=== PATIENT | male | born 1935 | race Two or more races ===

== ENCOUNTER 2017-09-30 20:53 | Inpatient (IN) | payer OTHER ==
[~2017-09-30] VITALS: Ht 182.9 cm; Wt 101.7 kg
[~2017-09-30 20:53] MED LIST: ALLO300T2 PO; APIX2.5T PO; ASPI-1197 PO; CLOP75TA32 PO; DILT240C94 PO; DOCU-116 PO; DONE5TAB33 PO; DULA1.5P SQ; ESCI10TA54 PO; FURO40TA5 PO; INSU300I SQ; METO-391 PO; OMEP40CA37 PO; POTA-79 PO; PREG200C PO; TRAZ-144 PO; VALA500T38 PO; ZOLP6.2526 PO
[2017-09-30] MEDS ORDERED: SODIUM CHLORIDE 0.9% 1000ML 1,000 ML IV ONE (21:21)
[2017-09-30] MEDS ORDERED: ATROPINE SULFATE 0.1 MG/ML 10 ML SYG IVP ONE (21:21)
[2017-09-30] MEDS ORDERED: DOPAMINE HCL 400 MG/D5%-WATER 250 ML IV ONE (21:26)
[2017-09-30 21:34] LABS: BASOPHILS % (AUTO) 0.5 % (0.0-5.0); EOSINOPHILS % (AUTO) 0.3 % (0.0-8.0); HEMATOCRIT 37.4 % (42-54); LYMPHOCYTES % (AUTO) 11.1 % (21.0-51.0); MEAN CORPUSCULAR HEMOGLOBIN 24.3 pg (27.0-33.0); MONOCYTES % (AUTO) 14.7 % (3.0-13.0); NEUTROPHILS % (AUTO) 73.4 % (40.0-77.0); PLATELET COUNT (AUTO) 203 K/uL (130-400); RED BLOOD CELL COUNT(AUTO) 4.92 MIL/uL (4.50-6.20); RED CELL DISTRIBUTION WIDTH 18.1 % (11.0-15.5); WHITE BLOOD COUNT (AUTO) 10.4 K/uL (4.8-10.8)
[2017-09-30 21:42] LABS: CREATININE 1.6 mg/dL (0.5-1.5); POTASSIUM 3.6 mmol/L (3.5-5.1)
[2017-09-30 21:55] LABS: ALBUMIN 3.6 g/dL (3.5-5.0); BILIRUBIN,TOTAL 1.3 mg/dL (0.2-1.0); CREATINE KINASE MB 0.5 ng/mL (0.5-3.6); TOTAL PROTEIN, SERUM 7.7 g/dL (6.0-8.3)
[2017-09-30 22:06] LABS: MAGNESIUM 2.1 mg/dL (1.80-2.40); PHOSPHORUS 2.7 mg/dL (2.5-4.9)
[2017-09-30 22:19] LABS: APPEARANCE,URINE Clear (CLEAR); BILIRUBIN,URINE Negative (NEGATIVE); COLOR,URINE Dark Yellow (YELLOW); GLUCOSE, URINE (UA) Negative (NEGATIVE); KETONES,URINE Negative (NEGATIVE); LEUKOCYTE ESTERASE ,URINE Trace (NEGATIVE); NITRATE,URINE Negative (NEGATIVE); OCCULT BLOOD,URINE Large (NEGATIVE); PH,URINE 5.5 (5.0-8.0); PROTEIN,URINE 300 (NEGATIVE)
[2017-09-30] MEDS ORDERED: EPINEPHRINE 1 MG/ML AMPULE ONE (22:48)
[2017-09-30] MEDS ORDERED: ASPIRIN 325 MG TABLET ONE (22:55)
[2017-09-30] MEDS ORDERED: AZITHROMYCIN 500MG+NS 250ML 250 ML IV ONE (22:55)
[2017-09-30] MEDS ORDERED: CEFTRIAXONE SODIUM 1 GM ONE (22:56)
[2017-09-30] MEDS ORDERED: ACETAMINOPHEN 325 MG TAB ONE (22:56)
[2017-09-30 22:58] LABS: BACTERIA,URINE None Seen /HPF (None Seen); RBC,URINE 51-100 /HPF (0-1); SQUAMOUS EPITHELIAL CELL,UR Rare /LPF (0-2); WBC,URINE 0-1 /HPF (0-1)
[2017-10-01] VITALS (22 sets, daily range): BP systolic 129–165; BP diastolic 59–98
[2017-10-01] MEDS ORDERED: IPRATROPIUM/ALBUTEROL SULFATE 3 ML SOLUTION IH ONE (04:20)
[2017-10-01] MEDS ORDERED: MEROPENEM 1 GM VIAL ONE (04:36)
[2017-10-01] MEDS ORDERED: DOPAMINE HCL 400 MG/D5%-WATER 250 ML IV ONE (05:08)
[2017-10-01] MEDS ORDERED: DIPHENHYDRAMINE HCL 25 MG CAPSULE PO PRN (06:15)
[2017-10-01] MEDS ORDERED: POTASSIUM CHLORIDE 20 MEQ ERTAB PO PRN (06:15)
[2017-10-01] MEDS ORDERED: ZOLPIDEM TARTRATE 5 MG TAB PO PRN (06:15)
[2017-10-01] MEDS ORDERED: NITROGLYCERIN 0.4 MG SL TAB SL PRN ×2 (06:15→07:45)
[2017-10-01] MEDS ORDERED: ONDANSETRON HCL 4 MG/2 ML VIAL IVP PRN (06:15)
[2017-10-01] MEDS ORDERED: GUAIFENESIN SUGAR-FREE 100 MG/5 ML UDCUP PO PRN (06:15)
[2017-10-01] MEDS ORDERED: ACETAMINOPHEN 325 MG TAB PO PRN ×2 (06:15)
[2017-10-01] MEDS ORDERED: LIDOCAINE HCL-MPF 1% 2ML VIAL IJ PRN (06:15)
[2017-10-01] MEDS ORDERED: GUAIFENESIN-DM 200/20 MG 10 ML PO PRN (06:15)
[2017-10-01] MEDS ORDERED: DiphenhydrAMINE HCL 50 MG/ML VIAL IVP PRN (06:15)
[2017-10-01] MEDS ORDERED: POTASSIUM CHLORIDE 20MEQ/100ML 100 ML IV PRN (06:15)
[2017-10-01] MEDS ORDERED: GLUCAGON 1MG KIT 1 MG ML IM PRN (06:15)
[2017-10-01] MEDS ORDERED: DEXTROSE 50%-WATER 50 ML DISP.SYRIN IV PRN (06:15)
[2017-10-01] MEDS ORDERED: POTASSIUM CHLORIDE 10% ELIXIR 20 MEQ/15 ML UDCUP PO PRN (06:15)
[2017-10-01] MEDS ORDERED: MAG HYDROX/AL HYDROX/SIMETH ES 30 ML SUSP UDCUP PO PRN (06:15)
[2017-10-01] MEDS ORDERED: LACTULOSE 20 GM/30 ML UDCUP PO PRN (06:15)
[2017-10-01] MEDS: INSULIN R PO SSI SQ SCH ×4 (06:35→21:19)
[2017-10-01] MEDS ORDERED: IPRATROPIUM/ALBUTEROL SULFATE 3 ML SOLUTION IH PRN (06:45)
[2017-10-01 06:47] LABS: MEAN CORPUSCULAR HEMOGLOBIN 24.1 pg (27.0-33.0); MEAN CORPUSCULAR HGB CONC 31.6 g/dL (32.0-36.0); MEAN CORPUSCULAR VOLUME 76.4 fL (79-99); PLATELET COUNT (AUTO) 209 K/uL (130-400); RED BLOOD CELL COUNT(AUTO) 4.97 MIL/uL (4.50-6.20); WHITE BLOOD COUNT (AUTO) 10.9 K/uL (4.8-10.8)
[2017-10-01 07:07] LABS: ALBUMIN 3.4 g/dL (3.5-5.0); BILIRUBIN,TOTAL 1.5 mg/dL (0.2-1.0); TOTAL PROTEIN, SERUM 7.6 g/dL (6.0-8.3)
[2017-10-01 07:36] LABS: MAGNESIUM 2.1 mg/dL (1.80-2.40); PHOSPHORUS 3.9 mg/dL (2.5-4.9); THYROID STIMULATING HORMONE 0.52 uIU/mL (0.36-3.74)
[2017-10-01] MEDS ORDERED: PREG200C PO (07:43)
[2017-10-01] MEDS ORDERED: ASPI-555 PO (07:43)
[2017-10-01] MEDS ORDERED: METO-408 PO (07:43)
[2017-10-01] MEDS ORDERED: NITR0.4T50 SL (07:43)
[2017-10-01] MEDS ORDERED: ISOS30TA11 PO (07:43)
[2017-10-01] MEDS: AZITHROMYCIN 500MG+NS 250ML 250 ML IV SCH (08:27)
[2017-10-01] MEDS: CITALOPRAM 20 MG TABLET PO SCH (08:28)
[2017-10-01] MEDS: APIXABAN 2.5 MG TABLET PO SCH ×2 (08:28→21:15)
[2017-10-01] MEDS: ISOSORBIDE DINITRATE 20 MG TABLET PO SCH (08:29)
[2017-10-01] MEDS: PREGABALIN 100 MG CAPSULE PO SCH ×2 (08:30→17:09)
[2017-10-01] MEDS: POTASSIUM CHLORIDE 20 MEQ ERTAB PO SCH ×2 (08:30→21:16)
[2017-10-01] MEDS: PANTOPRAZOLE SODIUM 40 MG TABLET.DR PO SCH (08:30)
[2017-10-01] MEDS: FUROSEMIDE 40 MG TABLET PO SCH ×2 (08:30→21:16)
[2017-10-01] MEDS: ALLOPURINOL 300 MG TABLET PO SCH (08:31)
[2017-10-01] MEDS: DONEPEZIL HCL 5 MG TAB PO SCH (08:31)
[2017-10-01] MEDS: VALACYCLOVIR HCL 500 MG TABLET PO SCH (08:31)
[2017-10-01] MEDS: INSULIN GLARGINE 100 UNITS/ML 10 ML VIAL SQ SCH (08:41)
[2017-10-01] MEDS: IPRATROPIUM/ALBUTEROL SULFATE 3 ML SOLUTION IH SCH ×3 (11:11→23:38)
[2017-10-01] MEDS: MEROPENEM 1 GM VIAL IVP SCH ×2 (13:02→21:15)
[2017-10-01] MEDS: TRAZODONE HCL 50 MG TAB PO SCH (21:15)
[2017-10-01] MEDS: ASPIRIN 81 MG EC TAB PO SCH (21:16)
[2017-10-01] MEDS: ZOLPIDEM TARTRATE 5 MG TAB PO SCH (21:16)
[2017-10-02] VITALS (19 sets, daily range): BP systolic 134–174; BP diastolic 51–92
[2017-10-02] MEDS: PREGABALIN 100 MG CAPSULE PO SCH ×2 (00:44→08:45)
[2017-10-02 04:10] LABS: BASOPHILS % (AUTO) 0.5 % (0.0-5.0); EOSINOPHILS % (AUTO) 0.6 % (0.0-8.0); HEMATOCRIT 32.7 % (42-54); MEAN CORPUSCULAR HEMOGLOBIN 24.6 pg (27.0-33.0); MEAN CORPUSCULAR HGB CONC 32.8 g/dL (32.0-36.0); MONOCYTES % (AUTO) 15.7 % (3.0-13.0); NEUTROPHILS % (AUTO) 70.2 % (40.0-77.0); NUCLEATED RED BLOOD CELLS 0.1 % (0.0-0.19); PLATELET COUNT (AUTO) 176 K/uL (130-400); RED BLOOD CELL COUNT(AUTO) 4.36 MIL/uL (4.50-6.20); RED CELL DISTRIBUTION WIDTH 17.8 % (11.0-15.5); WHITE BLOOD COUNT (AUTO) 7.8 K/uL (4.8-10.8)
[2017-10-02 04:37] LABS: CREATININE 1.6 mg/dL (0.5-1.5); MAGNESIUM 2.1 mg/dL (1.80-2.40); POTASSIUM 3.1 mmol/L (3.5-5.1)
[2017-10-02] MEDS: MEROPENEM 1 GM VIAL IVP SCH ×3 (05:49→22:32)
[2017-10-02] MEDS: INSULIN R PO SSI SQ SCH ×4 (05:53→22:49)
[2017-10-02] MEDS: IPRATROPIUM/ALBUTEROL SULFATE 3 ML SOLUTION IH SCH ×3 (05:58→23:32)
[2017-10-02] MEDS: AZITHROMYCIN 500MG+NS 250ML 250 ML IV SCH (08:44)
[2017-10-02] MEDS: VALACYCLOVIR HCL 500 MG TABLET PO SCH (08:45)
[2017-10-02] MEDS: CITALOPRAM 20 MG TABLET PO SCH (08:45)
[2017-10-02] MEDS: PANTOPRAZOLE SODIUM 40 MG TABLET.DR PO SCH (08:45)
[2017-10-02] MEDS: FUROSEMIDE 40 MG TABLET PO SCH ×2 (08:45→22:35)
[2017-10-02] MEDS: DONEPEZIL HCL 5 MG TAB PO SCH (08:45)
[2017-10-02] MEDS: INSULIN GLARGINE 100 UNITS/ML 10 ML VIAL SQ SCH (08:48)
[2017-10-02] MEDS: POTASSIUM CHLORIDE 20 MEQ ERTAB PO SCH ×2 (08:49→21:00)
[2017-10-02] MEDS: APIXABAN 2.5 MG TABLET PO SCH ×2 (08:54→22:35)
[2017-10-02] MEDS: ALLOPURINOL 300 MG TABLET PO SCH (08:55)
[2017-10-02] MEDS: ISOSORBIDE DINITRATE 20 MG TABLET PO SCH (08:55)
[2017-10-02] MEDS ORDERED: POTASSIUM CHLORIDE 10 MEQ/TAB.SA PO ONE ×2 (21:57→21:58)
[2017-10-02] MEDS: TRAZODONE HCL 50 MG TAB PO SCH (22:34)
[2017-10-02] MEDS: ASPIRIN 81 MG EC TAB PO SCH (22:35)
[2017-10-02] MEDS: ZOLPIDEM TARTRATE 5 MG TAB PO SCH (22:55)
[2017-10-03] VITALS (7 sets, daily range): BP systolic 146–181; BP diastolic 59–92
[2017-10-03] MEDS ORDERED: POTASSIUM CHLORIDE 10 MEQ/TAB.SA PO ONE ×4 (00:35→01:44)
[2017-10-03] MEDS: PREGABALIN 100 MG CAPSULE PO SCH ×3 (00:49→16:50)
[2017-10-03] MEDS: MEROPENEM 1 GM VIAL IVP SCH ×3 (05:07→20:08)
[2017-10-03] MEDS: INSULIN R PO SSI SQ SCH ×4 (06:15→20:53)
[2017-10-03] MEDS: IPRATROPIUM/ALBUTEROL SULFATE 3 ML SOLUTION IH SCH ×4 (06:15→23:57)
[2017-10-03] MEDS ORDERED: CLONIDINE HCL 0.1 MG TABLET PO PRN (07:15)
[2017-10-03] MEDS: AZITHROMYCIN 500MG+NS 250ML 250 ML IV SCH (09:00)
[2017-10-03] MEDS: VALACYCLOVIR HCL 500 MG TABLET PO SCH (09:00)
[2017-10-03] MEDS: CITALOPRAM 20 MG TABLET PO SCH (09:00)
[2017-10-03] MEDS: ISOSORBIDE DINITRATE 20 MG TABLET PO SCH (09:00)
[2017-10-03] MEDS: DONEPEZIL HCL 5 MG TAB PO SCH (09:00)
[2017-10-03] MEDS: INSULIN GLARGINE 100 UNITS/ML 10 ML VIAL SQ SCH (09:00)
[2017-10-03] MEDS: AMLODIPINE BESYLATE 5 MG TAB PO SCH (09:00)
[2017-10-03] MEDS: FUROSEMIDE 40 MG TABLET PO SCH ×2 (09:00→20:08)
[2017-10-03] MEDS: ALLOPURINOL 300 MG TABLET PO SCH (09:00)
[2017-10-03] MEDS: APIXABAN 2.5 MG TABLET PO SCH ×2 (09:00→20:08)
[2017-10-03] MEDS: PANTOPRAZOLE SODIUM 40 MG TABLET.DR PO SCH (09:00)
[2017-10-03] MEDS: POTASSIUM CHLORIDE 20 MEQ ERTAB PO SCH ×2 (09:00→20:09)
[2017-10-03] MEDS: ZOLPIDEM TARTRATE 5 MG TAB PO SCH (20:08)
[2017-10-03] MEDS: ASPIRIN 81 MG EC TAB PO SCH (20:08)
[2017-10-03] MEDS: TRAZODONE HCL 50 MG TAB PO SCH (20:09)
[2017-10-03] MEDS: CLONIDINE HCL 0.1 MG TABLET PO PRN (23:40)
[2017-10-04] MEDS: PREGABALIN 100 MG CAPSULE PO SCH ×3 (00:09→16:30)
[2017-10-04 03:46] VITALS: BP 167/70
[2017-10-04 04:50] LABS: HEMATOCRIT 33.3 % (42-54); MEAN CORPUSCULAR HEMOGLOBIN 24.6 pg (27.0-33.0); MEAN CORPUSCULAR HGB CONC 32.4 g/dL (32.0-36.0); MEAN CORPUSCULAR VOLUME 75.8 fL (79-99); PLATELET COUNT (AUTO) 165 K/uL (130-400); WHITE BLOOD COUNT (AUTO) 6.3 K/uL (4.8-10.8)
[2017-10-04 05:04] LABS: ALBUMIN 2.8 g/dL (3.5-5.0); CREATININE 1.3 mg/dL (0.5-1.5); POTASSIUM 3.4 mmol/L (3.5-5.1); TOTAL PROTEIN, SERUM 6.6 g/dL (6.0-8.3)
[2017-10-04] MEDS: MEROPENEM 1 GM VIAL IVP SCH ×3 (05:42→21:17)
[2017-10-04] MEDS: INSULIN R PO SSI SQ SCH ×4 (06:17→21:00)
[2017-10-04] MEDS: IPRATROPIUM/ALBUTEROL SULFATE 3 ML SOLUTION IH SCH ×4 (06:49→23:37)
[2017-10-04 07:08] VITALS: BP 108/35
[2017-10-04] MEDS: APIXABAN 2.5 MG TABLET PO SCH ×2 (09:56→21:16)
[2017-10-04] MEDS: CITALOPRAM 20 MG TABLET PO SCH (09:56)
[2017-10-04] MEDS: VALACYCLOVIR HCL 500 MG TABLET PO SCH (09:57)
[2017-10-04] MEDS: ALLOPURINOL 300 MG TABLET PO SCH (09:57)
[2017-10-04] MEDS: PANTOPRAZOLE SODIUM 40 MG TABLET.DR PO SCH (09:57)
[2017-10-04] MEDS: DONEPEZIL HCL 5 MG TAB PO SCH (09:57)
[2017-10-04] MEDS: FUROSEMIDE 40 MG TABLET PO SCH ×2 (09:58→16:30)
[2017-10-04] MEDS: POTASSIUM CHLORIDE 20 MEQ ERTAB PO SCH ×2 (09:59→21:16)
[2017-10-04] MEDS: AZITHROMYCIN 500MG+NS 250ML 250 ML IV SCH (10:00)
[2017-10-04] MEDS: INSULIN GLARGINE 100 UNITS/ML 10 ML VIAL SQ SCH (10:47)
[2017-10-04 11:13] VITALS: BP 155/61
[2017-10-04] MEDS: ISOSORBIDE DINITRATE 20 MG TABLET PO SCH (13:36)
[2017-10-04] MEDS: AMLODIPINE BESYLATE 5 MG TAB PO SCH (13:37)
[2017-10-04 16:20] VITALS: BP 136/57
[2017-10-04 19:15] VITALS: BP 141/61
[2017-10-04] MEDS: TRAZODONE HCL 50 MG TAB PO SCH (21:16)
[2017-10-04] MEDS: ZOLPIDEM TARTRATE 5 MG TAB PO SCH (21:16)
[2017-10-04] MEDS: ASPIRIN 81 MG EC TAB PO SCH (21:16)
[2017-10-04 23:06] VITALS: BP 146/74
[2017-10-05] MEDS: PREGABALIN 100 MG CAPSULE PO SCH ×3 (01:32→17:32)
[2017-10-05 03:34] VITALS: BP 170/62
[2017-10-05] MEDS: MEROPENEM 1 GM VIAL IVP SCH (05:54)
[2017-10-05] MEDS: IPRATROPIUM/ALBUTEROL SULFATE 3 ML SOLUTION IH SCH ×4 (06:19→23:39)
[2017-10-05] MEDS: INSULIN R PO SSI SQ SCH ×4 (06:48→21:00)
[2017-10-05 07:00] VITALS: BP 176/64
[2017-10-05] MEDS: INSULIN GLARGINE 100 UNITS/ML 10 ML VIAL SQ SCH (08:11)
[2017-10-05] MEDS: CITALOPRAM 20 MG TABLET PO SCH (08:28)
[2017-10-05] MEDS: VALACYCLOVIR HCL 500 MG TABLET PO SCH (08:28)
[2017-10-05] MEDS: APIXABAN 2.5 MG TABLET PO SCH ×2 (08:28→21:02)
[2017-10-05] MEDS: PANTOPRAZOLE SODIUM 40 MG TABLET.DR PO SCH (08:28)
[2017-10-05] MEDS: POTASSIUM CHLORIDE 20 MEQ ERTAB PO SCH ×2 (08:43→21:02)
[2017-10-05] MEDS: ISOSORBIDE DINITRATE 20 MG TABLET PO SCH (08:44)
[2017-10-05] MEDS: DONEPEZIL HCL 5 MG TAB PO SCH (08:45)
[2017-10-05] MEDS: AMLODIPINE BESYLATE 5 MG TAB PO SCH (08:45)
[2017-10-05] MEDS: ALLOPURINOL 300 MG TABLET PO SCH (08:45)
[2017-10-05] MEDS: FUROSEMIDE 40 MG TABLET PO SCH ×2 (08:45→17:33)
[2017-10-05] MEDS: AZITHROMYCIN 500MG+NS 250ML 250 ML IV SCH (08:46)
[2017-10-05 10:46] VITALS: BP 152/62
[2017-10-05 16:00] VITALS: BP 143/66
[2017-10-05 19:07] VITALS: BP 164/64
[2017-10-05] MEDS: ZOLPIDEM TARTRATE 5 MG TAB PO SCH (21:02)
[2017-10-05] MEDS: TRAZODONE HCL 50 MG TAB PO SCH (21:02)
[2017-10-05] MEDS: ASPIRIN 81 MG EC TAB PO SCH (21:02)
[2017-10-05 23:30] VITALS: BP 163/66
[2017-10-06] MEDS: PREGABALIN 100 MG CAPSULE PO SCH ×2 (01:28→10:16)
[2017-10-06 03:33] VITALS: BP 176/80
[2017-10-06] MEDS: CLONIDINE HCL 0.1 MG TABLET PO PRN (03:58)
[2017-10-06] MEDS: INSULIN R PO SSI SQ SCH ×3 (06:04→16:30)
[2017-10-06] MEDS: IPRATROPIUM/ALBUTEROL SULFATE 3 ML SOLUTION IH SCH ×2 (06:22→11:08)
[2017-10-06 08:00] VITALS: BP 167/61
[2017-10-06] MEDS: APIXABAN 2.5 MG TABLET PO SCH (10:15)
[2017-10-06] MEDS: ALLOPURINOL 300 MG TABLET PO SCH (10:16)
[2017-10-06] MEDS: CITALOPRAM 20 MG TABLET PO SCH (10:16)
[2017-10-06] MEDS: PANTOPRAZOLE SODIUM 40 MG TABLET.DR PO SCH (10:16)
[2017-10-06] MEDS: FUROSEMIDE 40 MG TABLET PO SCH (10:16)
[2017-10-06] MEDS: DONEPEZIL HCL 5 MG TAB PO SCH (10:16)
[2017-10-06] MEDS: VALACYCLOVIR HCL 500 MG TABLET PO SCH (10:16)
[2017-10-06] MEDS: AMLODIPINE BESYLATE 5 MG TAB PO SCH (10:16)
[2017-10-06] MEDS: POTASSIUM CHLORIDE 20 MEQ ERTAB PO SCH (10:17)
[2017-10-06] MEDS: ISOSORBIDE DINITRATE 20 MG TABLET PO SCH (10:17)
[2017-10-06] MEDS: INSULIN GLARGINE 100 UNITS/ML 10 ML VIAL SQ SCH (10:28)
[2017-10-06 12:00] VITALS: BP 147/59
== END 2017-10-06 17:29 | disposition home or self-care (01) | DRG 871 ==
LOC: EDH 20:53 → EDHIP 23:23 → 2BH 10-01 04:55 → 2DH 10-02 17:56
PROVIDERS: ADMIT Internal Medicine; ATTEND Internal Medicine
DX: A41.9 Sepsis, unspecified organism (principal); R65.21 Severe sepsis with septic shock; J18.9 Pneumonia, unspecified organism; I13.0 Hypertensive heart and chronic kidney disease with heart failure and stage 1 through stage 4 chronic kidney disease, or unspecified chronic kidney disease; E11.22 Type 2 diabetes mellitus with diabetic chronic kidney disease; I48.2 Chronic atrial fibrillation; I50.9 Heart failure, unspecified; E11.42 Type 2 diabetes mellitus with diabetic polyneuropathy; J44.0 Chronic obstructive pulmonary disease with (acute) lower respiratory infection; J44.1 Chronic obstructive pulmonary disease with (acute) exacerbation; Z66 Do not resuscitate; I48.91 Unspecified atrial fibrillation; I25.10 Atherosclerotic heart disease of native coronary artery without angina pectoris; E78.5 Hyperlipidemia, unspecified; F03.90 Unspecified dementia, unspecified severity, without behavioral disturbance, psychotic disturbance, mood disturbance, and anxiety; I35.0 Nonrheumatic aortic (valve) stenosis; J20.9 Acute bronchitis, unspecified; N18.3 Chronic kidney disease, stage 3 (moderate); Z95.1 Presence of aortocoronary bypass graft; Z79.01 Long term (current) use of anticoagulants; Z85.46 Personal history of malignant neoplasm of prostate
CPT/HCPCS: 36415; 71045; 80048; 80053; 81001; 82550; 82553; 82948; 83605; 83735; 84100; 84443; 84484; 85025; 85027; 87040; 87088; 87804; 93005; 94640; 94664; 99291; 99292; A4218; J0171; J0456; J0461; J0696; J1265; J1815; J2185; J7030

== ENCOUNTER 2017-10-21 18:23 | Inpatient (IN) | payer OTHER ==
[~2017-10-21] VITALS: Ht 182.9 cm; Wt 100.7 kg
[~2017-10-21 18:23] MED LIST changes: -ASPI-1197 PO; +ASPI-555 PO; -CLOP75TA32 PO; -DILT240C94 PO; -DOCU-116 PO; -DULA1.5P SQ; +ISOS30TA11 PO; -METO-391 PO; +METO-408 PO; +NITR0.4T50 SL
[2017-10-21] MEDS ORDERED: SODIUM CHLORIDE 0.9% 50 ML IV ONE (18:27)
[2017-10-21 18:51] LABS: BASOPHILS % (AUTO) 0.7 % (0.0-5.0); EOSINOPHILS % (AUTO) 0.2 % (0.0-8.0); HEMATOCRIT 36.7 % (42-54); LYMPHOCYTES % (AUTO) 20.3 % (21.0-51.0); MEAN CORPUSCULAR HEMOGLOBIN 24.7 pg (27.0-33.0); MEAN CORPUSCULAR HGB CONC 32.9 g/dL (32.0-36.0); MEAN CORPUSCULAR VOLUME 75.3 fL (79-99); MONOCYTES % (AUTO) 18.9 % (3.0-13.0); NEUTROPHILS % (AUTO) 59.9 % (40.0-77.0); PLATELET COUNT (AUTO) 238 K/uL (130-400); RED BLOOD CELL COUNT(AUTO) 4.88 MIL/uL (4.50-6.20); WHITE BLOOD COUNT (AUTO) 4.3 K/uL (4.8-10.8)
[2017-10-21 18:54] LABS: ABG BASE EXCESS 1.6 mmol/L (-2.0-3.0); ABG HCO3 25.7 mmol/L (21.0-28.0); ABG OXYGEN SATURATION 96.1 % (95.0-99.0); ABG PCO2 39 mmHg (35-48)
[2017-10-21 19:08] LABS: CREATININE 1.6 mg/dL (0.5-1.5); POTASSIUM 3.8 mmol/L (3.5-5.1)
[2017-10-21 19:23] LABS: ALBUMIN 3.4 g/dL (3.5-5.0); BILIRUBIN,TOTAL 0.8 mg/dL (0.2-1.0); CREATINE KINASE MB 0.8 ng/mL (0.5-3.6); TOTAL PROTEIN, SERUM 7.4 g/dL (6.0-8.3)
[2017-10-21] MEDS ORDERED: OSELTAMIVIR PHOSPHATE 75 MG CAP ONE (19:48)
[2017-10-21] MEDS ORDERED: ASPIRIN 325 MG TABLET ONE (19:48)
[2017-10-21] MEDS ORDERED: AMIODARONE HCL 900 MG in DEXTROSE 5%-WATER 500 ML IV SCH (20:45)
[2017-10-21] MEDS ORDERED: CEFTRIAXONE SODIUM 1 GM ONE (20:59)
[2017-10-21] MEDS ORDERED: AZITHROMYCIN 250 MG TABLET PO ONE (20:59)
[2017-10-21] MEDS ORDERED: METHYLPREDNISOLONE SOD SUCC 40MG/ML 1ML ONE (21:13)
[2017-10-22] VITALS (21 sets, daily range): BP systolic 144–185; BP diastolic 60–101
[2017-10-22 06:55] LABS: BASOPHILS % (AUTO) 0.3 % (0.0-5.0); HEMATOCRIT 37.3 % (42-54); LYMPHOCYTES % (AUTO) 12.1 % (21.0-51.0); MEAN CORPUSCULAR HGB CONC 32.1 g/dL (32.0-36.0); MEAN CORPUSCULAR VOLUME 74.9 fL (79-99); MONOCYTES % (AUTO) 4.6 % (3.0-13.0); NUCLEATED RED BLOOD CELLS 0.1 % (0.0-0.19); PLATELET COUNT (AUTO) 214 K/uL (130-400); RED BLOOD CELL COUNT(AUTO) 4.98 MIL/uL (4.50-6.20); RED CELL DISTRIBUTION WIDTH 19.1 % (11.0-15.5); WHITE BLOOD COUNT (AUTO) 3.3 K/uL (4.8-10.8)
[2017-10-22 07:05] LABS: CREATININE 1.7 mg/dL (0.5-1.5); POTASSIUM 4.1 mmol/L (3.5-5.1)
[2017-10-22 07:11] LABS: ALBUMIN 3.2 g/dL (3.5-5.0); BILIRUBIN,TOTAL 0.7 mg/dL (0.2-1.0); TOTAL PROTEIN, SERUM 7.2 g/dL (6.0-8.3)
[2017-10-22] MEDS ORDERED: NITROGLYCERIN 0.4 MG SL TAB SL PRN (09:15)
[2017-10-22] MEDS: ENOXAPARIN SODIUM 30 MG/0.3 ML SQ SCH (09:55)
[2017-10-22] MEDS: METHYLPREDNISOLONE SOD SUCC 125MG/2ML VIAL IVP SCH ×2 (09:55→20:41)
[2017-10-22 09:59] LABS: TROPONIN I 0.11 ng/mL (0.00-0.06)
[2017-10-22] MEDS: PREGABALIN 100 MG CAPSULE PO SCH ×2 (09:59→17:27)
[2017-10-22] MEDS: IPRATROPIUM 0.5 MG/2.5 ML INH IH SCH ×3 (11:02→23:17)
[2017-10-22] MEDS: ACETYLCYSTEINE 20% 200MG/ML 4ML VIAL IH SCH ×3 (11:02→23:17)
[2017-10-22 13:59] LABS: CREATINE KINASE MB 1.2 ng/mL (0.5-3.6); TROPONIN I 0.09 ng/mL (0.00-0.06)
[2017-10-22] MEDS: NITROGLYCERIN 1GM/1 INCH PACKET TD SCH ×2 (14:09→17:28)
[2017-10-22] MEDS: POTASSIUM CHLORIDE 20 MEQ ERTAB PO SCH (17:27)
[2017-10-22] MEDS: TRAZODONE HCL 50 MG TAB PO SCH (20:41)
[2017-10-22] MEDS: FUROSEMIDE 40 MG TABLET PO SCH (20:41)
[2017-10-22] MEDS: CEFTRIAXONE SODIUM 1 GM IVP SCH (20:41)
[2017-10-22] MEDS: ASPIRIN 81 MG EC TAB PO SCH (20:41)
[2017-10-22] MEDS: ZOLPIDEM TARTRATE PO SCH (21:00)
[2017-10-22] MEDS ORDERED: CEFTRIAXONE 1GM/D5W 50ML 50 ML IV SCH (21:00)
[2017-10-23] VITALS (31 sets, daily range): BP systolic 134–189; BP diastolic 51–114
[2017-10-23] MEDS: NITROGLYCERIN 1GM/1 INCH PACKET TD SCH ×4 (00:07→17:15)
[2017-10-23] MEDS: PREGABALIN 100 MG CAPSULE PO SCH ×3 (00:17→17:15)
[2017-10-23 04:30] LABS: CREATININE 1.7 mg/dL (0.5-1.5); MAGNESIUM 2.1 mg/dL (1.80-2.40); POTASSIUM 4.2 mmol/L (3.5-5.1)
[2017-10-23] MEDS: ACETYLCYSTEINE 20% 200MG/ML 4ML VIAL IH SCH ×3 (06:13→19:38)
[2017-10-23] MEDS: IPRATROPIUM 0.5 MG/2.5 ML INH IH SCH ×3 (06:13→19:38)
[2017-10-23] MEDS: PANTOPRAZOLE SODIUM 40 MG TABLET.DR PO SCH (07:36)
[2017-10-23] MEDS: FUROSEMIDE 40 MG TABLET PO SCH ×2 (07:37→21:53)
[2017-10-23] MEDS: METHYLPREDNISOLONE SOD SUCC 125MG/2ML VIAL IVP SCH ×2 (07:37→21:55)
[2017-10-23] MEDS: POTASSIUM CHLORIDE 20 MEQ ERTAB PO SCH ×2 (07:37→17:15)
[2017-10-23] MEDS: INSULIN GLARGINE 100 UNITS/ML 10 ML VIAL SQ SCH (07:39)
[2017-10-23] MEDS: ENOXAPARIN SODIUM 30 MG/0.3 ML SQ SCH (07:41)
[2017-10-23] MEDS: ISOSORBIDE MONO 30MG TAB SR PO SCH (07:46)
[2017-10-23] MEDS: ALLOPURINOL 300 MG TABLET PO SCH (07:46)
[2017-10-23] MEDS: CITALOPRAM 20 MG TABLET PO SCH (07:46)
[2017-10-23] MEDS: VALACYCLOVIR HCL 500 MG TABLET PO SCH (07:46)
[2017-10-23] MEDS ORDERED: DEXTROSE 50%-WATER 50 ML DISP.SYRIN IV PRN (09:15)
[2017-10-23] MEDS ORDERED: GLUCAGON 1MG KIT 1 MG ML IM PRN (09:15)
[2017-10-23] MEDS: SODIUM CHLORIDE 0.9% 500ML 500 ML IV SCH ×2 (12:15→17:21)
[2017-10-23] MEDS: INSULIN HUMULIN R 100 UNIT/ML 3ML SQ SCH ×3 (12:19→21:52)
[2017-10-23 12:42] LABS: INR 1.02 (0.85-1.15); PARTIAL THROMBOPLASTIN TIME 31.5 SEC (26.3-35.5); PROTHROMBIN TIME 10.7 SEC (9.6-11.6)
[2017-10-23] MEDS ORDERED: ISOVUE-370 50ML VIAL IV ONE (13:12)
[2017-10-23] MEDS ORDERED: HEPARIN SODIUM 1000UNIT/ML 10ML VIAL ONE (13:12)
[2017-10-23] MEDS ORDERED: IOPAMIDOL-370 100 ML VIAL IV ONE (13:12)
[2017-10-23] MEDS ORDERED: LIDOCAINE HCL 2% 20ML ONE ×3 (13:12→13:48)
[2017-10-23] MEDS ORDERED: HEPARIN SODIUM 5000UNIT/ML 1ML VIAL SQ PRN (14:30)
[2017-10-23 15:09] LABS: BASOPHILS % (AUTO) 0.1 % (0.0-5.0); HEMATOCRIT 35.5 % (42-54); LYMPHOCYTES % (AUTO) 6.8 % (21.0-51.0); MEAN CORPUSCULAR HEMOGLOBIN 24.1 pg (27.0-33.0); MEAN CORPUSCULAR HGB CONC 32.3 g/dL (32.0-36.0); MEAN CORPUSCULAR VOLUME 74.9 fL (79-99); NEUTROPHILS % (AUTO) 87.1 % (40.0-77.0); PLATELET COUNT (AUTO) 213 K/uL (130-400); RED BLOOD CELL COUNT(AUTO) 4.74 MIL/uL (4.50-6.20); RED CELL DISTRIBUTION WIDTH 19.2 % (11.0-15.5); WHITE BLOOD COUNT (AUTO) 8.8 K/uL (4.8-10.8)
[2017-10-23] MEDS: ZOLPIDEM TARTRATE PO SCH (21:00)
[2017-10-23] MEDS: ASPIRIN 81 MG EC TAB PO SCH (21:53)
[2017-10-23] MEDS: TRAZODONE HCL 50 MG TAB PO SCH (21:53)
[2017-10-23] MEDS: CEFTRIAXONE SODIUM 1 GM IVP SCH (22:01)
[2017-10-23] MEDS: HEPARIN 25000 UNITS/250 ML D5W 250 ML IV PRN (22:20)
[2017-10-24] VITALS (20 sets, daily range): BP systolic 126–177; BP diastolic 53–103
[2017-10-24] MEDS: IPRATROPIUM 0.5 MG/2.5 ML INH IH SCH ×4 (00:34→19:15)
[2017-10-24] MEDS: ACETYLCYSTEINE 20% 200MG/ML 4ML VIAL IH SCH ×4 (00:34→19:14)
[2017-10-24] MEDS: PREGABALIN 100 MG CAPSULE PO SCH ×3 (01:41→15:45)
[2017-10-24] MEDS: NITROGLYCERIN 1GM/1 INCH PACKET TD SCH ×4 (01:41→17:06)
[2017-10-24] MEDS: SODIUM CHLORIDE 0.9% 500ML 500 ML IV SCH ×2 (01:41→12:56)
[2017-10-24 04:07] LABS: HEMATOCRIT 35.1 % (42-54); MEAN CORPUSCULAR HEMOGLOBIN 24.3 pg (27.0-33.0); MEAN CORPUSCULAR HGB CONC 32.5 g/dL (32.0-36.0); MEAN CORPUSCULAR VOLUME 74.6 fL (79-99); PLATELET COUNT (AUTO) 207 K/uL (130-400); RED CELL DISTRIBUTION WIDTH 18.9 % (11.0-15.5); WHITE BLOOD COUNT (AUTO) 9.3 K/uL (4.8-10.8)
[2017-10-24 04:11] LABS: CREATININE 1.5 mg/dL (0.5-1.5); MAGNESIUM 2.3 mg/dL (1.80-2.40); POTASSIUM 4.5 mmol/L (3.5-5.1)
[2017-10-24] MEDS: INSULIN HUMULIN R 100 UNIT/ML 3ML SQ SCH ×4 (05:55→21:27)
[2017-10-24] MEDS: PANTOPRAZOLE SODIUM 40 MG TABLET.DR PO SCH (05:55)
[2017-10-24] MEDS: INSULIN GLARGINE 100 UNITS/ML 10 ML VIAL SQ SCH (05:57)
[2017-10-24] MEDS: POTASSIUM CHLORIDE 20 MEQ ERTAB PO SCH ×2 (08:34→15:46)
[2017-10-24] MEDS: ALLOPURINOL 300 MG TABLET PO SCH (08:35)
[2017-10-24] MEDS: VALACYCLOVIR HCL 500 MG TABLET PO SCH (08:35)
[2017-10-24] MEDS: ISOSORBIDE MONO 30MG TAB SR PO SCH (08:35)
[2017-10-24] MEDS: CITALOPRAM 20 MG TABLET PO SCH (08:35)
[2017-10-24] MEDS: FUROSEMIDE 40 MG TABLET PO SCH ×2 (08:35→21:22)
[2017-10-24] MEDS: METHYLPREDNISOLONE SOD SUCC 125MG/2ML VIAL IVP SCH ×2 (08:36→21:17)
[2017-10-24] MEDS: HEPARIN 25000 UNITS/250 ML D5W 250 ML IV PRN (11:17)
[2017-10-24] MEDS: ZOLPIDEM TARTRATE PO SCH (21:00)
[2017-10-24] MEDS: CEFTRIAXONE SODIUM 1 GM IVP SCH (21:20)
[2017-10-24] MEDS: ASPIRIN 81 MG EC TAB PO SCH (21:21)
[2017-10-24] MEDS: TRAZODONE HCL 50 MG TAB PO SCH (21:22)
[2017-10-25] VITALS (24 sets, daily range): BP systolic 137–181; BP diastolic 57–83
[2017-10-25] MEDS: PREGABALIN 100 MG CAPSULE PO SCH ×2 (00:07→08:40)
[2017-10-25] MEDS: NITROGLYCERIN 1GM/1 INCH PACKET TD SCH ×2 (00:07→05:49)
[2017-10-25] MEDS: SODIUM CHLORIDE 0.9% 500ML 500 ML IV SCH ×2 (00:11→09:45)
[2017-10-25] MEDS: IPRATROPIUM 0.5 MG/2.5 ML INH IH SCH ×5 (00:22→23:59)
[2017-10-25] MEDS: ACETYLCYSTEINE 20% 200MG/ML 4ML VIAL IH SCH ×4 (00:22→18:30)
[2017-10-25] MEDS: INSULIN HUMULIN R 100 UNIT/ML 3ML SQ SCH ×4 (05:53→21:00)
[2017-10-25] MEDS: PANTOPRAZOLE SODIUM 40 MG TABLET.DR PO SCH ×2 (06:37→08:36)
[2017-10-25] MEDS: INSULIN GLARGINE 100 UNITS/ML 10 ML VIAL SQ SCH (06:40)
[2017-10-25] MEDS ORDERED: COMPOUND PO MISCELLANEOUS 1 EACH MISC MISC PRN (07:15)
[2017-10-25] MEDS: CITALOPRAM 20 MG TABLET PO SCH (08:36)
[2017-10-25] MEDS: ISOSORBIDE MONO 30MG TAB SR PO SCH (08:36)
[2017-10-25] MEDS: VALACYCLOVIR HCL 500 MG TABLET PO SCH (08:36)
[2017-10-25] MEDS: FUROSEMIDE 40 MG TABLET PO SCH (08:37)
[2017-10-25] MEDS: POTASSIUM CHLORIDE 20 MEQ ERTAB PO SCH ×2 (08:37→16:44)
[2017-10-25] MEDS: METHYLPREDNISOLONE SOD SUCC 125MG/2ML VIAL IVP SCH ×2 (08:37→21:43)
[2017-10-25] MEDS: ALLOPURINOL 300 MG TABLET PO SCH (08:38)
[2017-10-25] MEDS: OSELTAMIVIR PHOSPHATE 300 MG, COMPOUNDING VEHICLE SF NO.9 50 ML PO SCH ×4 (09:00→21:44)
[2017-10-25] MEDS ORDERED: PHARMACY COMMUNICATION MISC SCH (09:00)
[2017-10-25] MEDS ORDERED: VANCOMYCIN 1GM+NS 250ML 250 ML IV PRN (13:30)
[2017-10-25] MEDS: CEFTRIAXONE SODIUM 1 GM IVP SCH (20:01)
[2017-10-25] MEDS: ASPIRIN 81 MG EC TAB PO SCH (20:01)
[2017-10-25] MEDS: PREGABALIN 25 MG CAP PO SCH (20:01)
[2017-10-25] MEDS: ZOLPIDEM TARTRATE PO SCH (21:00)
[2017-10-25] MEDS: TRAZODONE HCL 50 MG TAB PO SCH (21:43)
[2017-10-26] VITALS (22 sets, daily range): BP systolic 143–177; BP diastolic 52–84
[2017-10-26] MEDS: SODIUM CHLORIDE 0.9% 500ML 500 ML IV SCH ×2 (01:54→04:19)
[2017-10-26] MEDS: PREGABALIN 25 MG CAP PO SCH ×3 (03:02→18:34)
[2017-10-26 04:29] LABS: ALBUMIN 2.5 g/dL (3.5-5.0); BILIRUBIN,TOTAL 0.6 mg/dL (0.2-1.0); CREATININE 1.6 mg/dL (0.5-1.5); MAGNESIUM 2.1 mg/dL (1.80-2.40); POTASSIUM 3.7 mmol/L (3.5-5.1); TOTAL PROTEIN, SERUM 5.6 g/dL (6.0-8.3)
[2017-10-26] MEDS: INSULIN HUMULIN R 100 UNIT/ML 3ML SQ SCH ×4 (06:13→21:21)
[2017-10-26] MEDS: IPRATROPIUM 0.5 MG/2.5 ML INH IH SCH ×4 (06:31→23:53)
[2017-10-26] MEDS: ACETYLCYSTEINE 20% 200MG/ML 4ML VIAL IH SCH ×5 (06:31→23:52)
[2017-10-26] MEDS: INSULIN GLARGINE 100 UNITS/ML 10 ML VIAL SQ SCH (07:30)
[2017-10-26 08:25] LABS: INR 1.02 (0.85-1.15); PARTIAL THROMBOPLASTIN TIME 24.4 SEC (26.3-35.5); PROTHROMBIN TIME 10.7 SEC (9.6-11.6)
[2017-10-26 08:43] LABS: HEMATOCRIT 27.6 % (42-54); MEAN CORPUSCULAR HEMOGLOBIN 23.8 pg (27.0-33.0); MEAN CORPUSCULAR HGB CONC 32.4 g/dL (32.0-36.0); MEAN CORPUSCULAR VOLUME 73.4 fL (79-99); PLATELET COUNT (AUTO) 165 K/uL (130-400); RED BLOOD CELL COUNT(AUTO) 3.76 MIL/uL (4.50-6.20); RED CELL DISTRIBUTION WIDTH 18.9 % (11.0-15.5); WHITE BLOOD COUNT (AUTO) 11.4 K/uL (4.8-10.8)
[2017-10-26] MEDS ORDERED: VANCOMYCIN 1GM+NS 250ML 250 ML IV PRN (08:45)
[2017-10-26] MEDS ORDERED: BUPIVACAINE/PF 0.25% 30ML VIAL IJ ONE (08:48)
[2017-10-26] MEDS ORDERED: VANCOMYCIN 1GM+NS 250ML 0 ML IV ONE (08:48)
[2017-10-26] MEDS ORDERED: ISOVUE-300 100 ML VIAL IV ONE (08:48)
[2017-10-26] MEDS ORDERED: LIDOCAINE HCL 1% 20 ML VIAL ONE (08:49)
[2017-10-26] MEDS ORDERED: FUROSEMIDE 40 MG TABLET PO SCH (09:00)
[2017-10-26 09:48] LABS: LYMPHOCYTES % (MANUAL) 10 % (22-44); MAN.DIFF COMMENT-IMPRESSION MANUAL DIFFERENTIAL; MONOCYTES % (MANUAL) 2 % (2-9); SEGMENTED NEUTROPHILS % 88 % (40-70)
[2017-10-26 09:49] LABS: PLATELET MORPHOLOGY COMMENT ADEQUATE
[2017-10-26] MEDS: ENOXAPARIN SODIUM 30 MG/0.3 ML SQ SCH (09:55)
[2017-10-26] MEDS: ALLOPURINOL 300 MG TABLET PO SCH (09:55)
[2017-10-26] MEDS: VALACYCLOVIR HCL 500 MG TABLET PO SCH (09:56)
[2017-10-26] MEDS: ISOSORBIDE MONO 60 MG TAB.SR PO SCH (09:56)
[2017-10-26] MEDS: CITALOPRAM 20 MG TABLET PO SCH (09:56)
[2017-10-26] MEDS: METHYLPREDNISOLONE SOD SUCC 125MG/2ML VIAL IVP SCH ×2 (09:57→21:10)
[2017-10-26] MEDS: POTASSIUM CHLORIDE 20 MEQ ERTAB PO SCH ×2 (10:03→17:00)
[2017-10-26] MEDS: OSELTAMIVIR PHOSPHATE 300 MG, COMPOUNDING VEHICLE SF NO.9 50 ML PO SCH ×4 (10:03→21:10)
[2017-10-26] MEDS: ZOLPIDEM TARTRATE PO SCH (21:00)
[2017-10-26] MEDS ORDERED: CEFTRIAXONE SODIUM 1 GM IVP ONE (21:04)
[2017-10-26] MEDS: ASPIRIN 81 MG EC TAB PO SCH (21:10)
[2017-10-26] MEDS: TRAZODONE HCL 50 MG TAB PO SCH (21:10)
[2017-10-26] MEDS: CEFTRIAXONE SODIUM 1 GM IVP SCH (21:11)
[2017-10-27] MEDS: PREGABALIN 25 MG CAP PO SCH (02:18)
[2017-10-27 03:45] VITALS: BP 163/63
[2017-10-27 04:49] LABS: CREATININE 1.7 mg/dL (0.5-1.5); MAGNESIUM 2.3 mg/dL (1.80-2.40); POTASSIUM 4.1 mmol/L (3.5-5.1)
[2017-10-27 04:58] LABS: B-TYPE NATRIURETIC PEPTIDE 72 pg/mL (0-100)
[2017-10-27 05:09] LABS: HEMATOCRIT 26.7 % (42-54); MEAN CORPUSCULAR HEMOGLOBIN 24.2 pg (27.0-33.0); MEAN CORPUSCULAR HGB CONC 32.6 g/dL (32.0-36.0); MEAN CORPUSCULAR VOLUME 74.2 fL (79-99); NUCLEATED RED BLOOD CELLS 0.2 % (0.0-0.19); PLATELET COUNT (AUTO) 158 K/uL (130-400); RED BLOOD CELL COUNT(AUTO) 3.59 MIL/uL (4.50-6.20); RED CELL DISTRIBUTION WIDTH 19.1 % (11.0-15.5); WHITE BLOOD COUNT (AUTO) 9.4 K/uL (4.8-10.8)
[2017-10-27] MEDS: ACETYLCYSTEINE 20% 200MG/ML 4ML VIAL IH SCH ×3 (05:48→18:05)
[2017-10-27] MEDS: IPRATROPIUM 0.5 MG/2.5 ML INH IH SCH ×3 (05:49→18:05)
[2017-10-27] MEDS: PANTOPRAZOLE SODIUM 40 MG TABLET.DR PO SCH (06:09)
[2017-10-27] MEDS: INSULIN GLARGINE 100 UNITS/ML 10 ML VIAL SQ SCH (06:10)
[2017-10-27] MEDS: INSULIN HUMULIN R 100 UNIT/ML 3ML SQ SCH ×4 (06:13→21:40)
[2017-10-27 06:32] LABS: BAND NEUTROPHILS % (MANUAL) 2 % (0-2); LYMPHOCYTES % (MANUAL) 2 % (22-44); MAN.DIFF COMMENT-IMPRESSION MANUAL DIFFERENTIAL; MONOCYTES % (MANUAL) 2 % (2-9); REACTIVE LYMPHOCYTES 1 % (0-0); SEGMENTED NEUTROPHILS % 93 % (40-70)
[2017-10-27] MEDS ORDERED: COMPOUND IV MISC 1 EACH IVSOLN MISC PRN (06:45)
[2017-10-27 07:25] VITALS: BP 150/58
[2017-10-27] MEDS: VALACYCLOVIR HCL 500 MG TABLET PO SCH (08:17)
[2017-10-27] MEDS: ISOSORBIDE MONO 60 MG TAB.SR PO SCH (08:18)
[2017-10-27] MEDS: ALLOPURINOL 300 MG TABLET PO SCH (08:18)
[2017-10-27] MEDS: CITALOPRAM 20 MG TABLET PO SCH (08:19)
[2017-10-27] MEDS: POTASSIUM CHLORIDE 20 MEQ ERTAB PO SCH ×2 (08:19→16:25)
[2017-10-27] MEDS: ENOXAPARIN SODIUM 30 MG/0.3 ML SQ SCH (08:22)
[2017-10-27] MEDS: METHYLPREDNISOLONE SOD SUCC 40MG/ML 1ML IVP SCH ×2 (08:24→21:42)
[2017-10-27] MEDS: IRON SUCROSE COMPLEX 100 MG in SODIUM CHLORIDE 0.9% 50 ML IV SCH (08:24)
[2017-10-27] MEDS: OSELTAMIVIR PHOSPHATE 300 MG, COMPOUNDING VEHICLE SF NO.9 50 ML PO SCH ×4 (10:23→21:47)
[2017-10-27 11:27] VITALS: BP 196/65
[2017-10-27] MEDS: VANCOMYCIN 1GM+NS 250ML 250 ML IV SCH (12:15)
[2017-10-27] MEDS: PREGABALIN 100 MG CAPSULE PO SCH ×2 (13:25→21:41)
[2017-10-27 16:02] VITALS: BP 153/58
[2017-10-27 19:31] VITALS: BP 141/58
[2017-10-27] MEDS: ZOLPIDEM TARTRATE PO SCH (21:00)
[2017-10-27] MEDS: ASPIRIN 81 MG EC TAB PO SCH (21:41)
[2017-10-27] MEDS: TRAZODONE HCL 50 MG TAB PO SCH (21:41)
[2017-10-27] MEDS: CEFTRIAXONE SODIUM 1 GM IVP SCH (21:42)
[2017-10-27] MEDS: GUAIFENESIN-DM 200/20 MG 10 ML PO PRN (21:55)
[2017-10-27 23:33] VITALS: BP 165/55
[2017-10-28] VITALS (7 sets, daily range): BP systolic 95–183; BP diastolic 54–60
[2017-10-28] MEDS: IPRATROPIUM 0.5 MG/2.5 ML INH IH SCH ×5 (00:23→23:48)
[2017-10-28] MEDS: ACETYLCYSTEINE 20% 200MG/ML 4ML VIAL IH SCH ×5 (00:23→23:48)
[2017-10-28 04:32] LABS: INR 1.04 (0.85-1.15); PARTIAL THROMBOPLASTIN TIME 26.1 SEC (26.3-35.5); PROTHROMBIN TIME 10.9 SEC (9.6-11.6)
[2017-10-28] MEDS: INSULIN HUMULIN R 100 UNIT/ML 3ML SQ SCH ×5 (06:58→22:01)
[2017-10-28] MEDS: INSULIN GLARGINE 100 UNITS/ML 10 ML VIAL SQ SCH ×2 (06:59→07:15)
[2017-10-28] MEDS: PANTOPRAZOLE SODIUM 40 MG TABLET.DR PO SCH (07:12)
[2017-10-28] MEDS: PREGABALIN 100 MG CAPSULE PO SCH ×3 (07:12→21:59)
[2017-10-28 07:29] LABS: HEMATOCRIT 24.6 % (42-54); MEAN CORPUSCULAR HEMOGLOBIN 25.3 pg (27.0-33.0); MEAN CORPUSCULAR HGB CONC 33.7 g/dL (32.0-36.0); NUCLEATED RED BLOOD CELLS 0.8 % (0.0-0.19); PLATELET COUNT (AUTO) 137 K/uL (130-400); RED BLOOD CELL COUNT(AUTO) 3.28 MIL/uL (4.50-6.20); WHITE BLOOD COUNT (AUTO) 10.1 K/uL (4.8-10.8)
[2017-10-28 07:40] LABS: CREATININE 1.6 mg/dL (0.5-1.5); POTASSIUM 3.9 mmol/L (3.5-5.1)
[2017-10-28] MEDS: IRON SUCROSE COMPLEX 100 MG in SODIUM CHLORIDE 0.9% 50 ML IV SCH (08:29)
[2017-10-28] MEDS: ISOSORBIDE MONO 60 MG TAB.SR PO SCH (08:29)
[2017-10-28] MEDS: ENOXAPARIN SODIUM 30 MG/0.3 ML SQ SCH (09:00)
[2017-10-28] MEDS: VANCOMYCIN 1GM+NS 250ML 250 ML IV SCH (11:39)
[2017-10-28] MEDS: ALLOPURINOL 300 MG TABLET PO SCH (12:19)
[2017-10-28] MEDS: METHYLPREDNISOLONE SOD SUCC 40MG/ML 1ML IVP SCH ×2 (12:20→21:58)
[2017-10-28] MEDS: POTASSIUM CHLORIDE 20 MEQ ERTAB PO SCH ×2 (12:20→16:33)
[2017-10-28] MEDS: VALACYCLOVIR HCL 500 MG TABLET PO SCH (12:20)
[2017-10-28] MEDS: OSELTAMIVIR PHOSPHATE 300 MG, COMPOUNDING VEHICLE SF NO.9 50 ML PO SCH ×4 (12:21→22:02)
[2017-10-28] MEDS: ZOLPIDEM TARTRATE PO SCH (21:00)
[2017-10-28] MEDS: CEFTRIAXONE SODIUM 1 GM IVP SCH (21:58)
[2017-10-28] MEDS: TRAZODONE HCL 50 MG TAB PO SCH (21:59)
[2017-10-29] VITALS (14 sets, daily range): BP systolic 116–172; BP diastolic 60–93
[2017-10-29 03:43] LABS: HEMATOCRIT 26.1 % (42-54); MEAN CORPUSCULAR HEMOGLOBIN 24.8 pg (27.0-33.0); NUCLEATED RED BLOOD CELLS 0.7 % (0.0-0.19); PLATELET COUNT (AUTO) 143 K/uL (130-400); RED BLOOD CELL COUNT(AUTO) 3.48 MIL/uL (4.50-6.20); RED CELL DISTRIBUTION WIDTH 19.8 % (11.0-15.5); WHITE BLOOD COUNT (AUTO) 11.3 K/uL (4.8-10.8)
[2017-10-29] MEDS: PREGABALIN 100 MG CAPSULE PO SCH ×4 (04:58→21:38)
[2017-10-29] MEDS: IPRATROPIUM 0.5 MG/2.5 ML INH IH SCH ×3 (05:58→18:00)
[2017-10-29] MEDS: ACETYLCYSTEINE 20% 200MG/ML 4ML VIAL IH SCH ×3 (05:58→18:00)
[2017-10-29] MEDS: INSULIN HUMULIN R 100 UNIT/ML 3ML SQ SCH ×4 (06:35→21:27)
[2017-10-29] MEDS: PANTOPRAZOLE SODIUM 40 MG TABLET.DR PO SCH ×2 (06:36→15:00)
[2017-10-29] MEDS: INSULIN GLARGINE 100 UNITS/ML 10 ML VIAL SQ SCH (06:36)
[2017-10-29] MEDS: POTASSIUM CHLORIDE 20 MEQ ERTAB PO SCH ×2 (08:00→17:10)
[2017-10-29] MEDS: ENOXAPARIN SODIUM 30 MG/0.3 ML SQ SCH (09:00)
[2017-10-29] MEDS: METHYLPREDNISOLONE SOD SUCC 40MG/ML 1ML IVP SCH ×2 (10:57→21:38)
[2017-10-29] MEDS ORDERED: BUPIVACAINE/PF 0.25% 30ML VIAL IJ ONE (11:31)
[2017-10-29] MEDS ORDERED: LIDOCAINE HCL 1% 20 ML VIAL ONE (11:31)
[2017-10-29] MEDS ORDERED: ISOVUE-300 100 ML VIAL IV ONE (11:31)
[2017-10-29] MEDS ORDERED: VANCOMYCIN 1GM+NS 250ML 500 ML IV ONE (11:42)
[2017-10-29] MEDS ORDERED: MEPERIDINE-PF 50 MG/ML SYG ONE (12:08)
[2017-10-29] MEDS ORDERED: MIDAZOLAM HCL 1 MG/ML 2ML VIAL ONE (12:08)
[2017-10-29] MEDS: VANCOMYCIN 1GM+NS 250ML 250 ML IV SCH (12:15)
[2017-10-29] MEDS ORDERED: ACETAMINOPHEN-CODEINE 300/30MG TAB PO PRN ×2 (14:30)
[2017-10-29] MEDS ORDERED: ACETAMINOPHEN 325 MG TAB PO PRN (14:30)
[2017-10-29] MEDS: ALLOPURINOL 300 MG TABLET PO SCH (14:59)
[2017-10-29] MEDS: ISOSORBIDE MONO 60 MG TAB.SR PO SCH (14:59)
[2017-10-29] MEDS: OSELTAMIVIR PHOSPHATE 300 MG, COMPOUNDING VEHICLE SF NO.9 50 ML PO SCH ×4 (15:00→21:44)
[2017-10-29] MEDS: VALACYCLOVIR HCL 500 MG TABLET PO SCH (15:00)
[2017-10-29] MEDS: ZOLPIDEM TARTRATE PO SCH (20:19)
[2017-10-29] MEDS: CEFTRIAXONE SODIUM 1 GM IVP SCH (21:37)
[2017-10-29] MEDS: TRAZODONE HCL 50 MG TAB PO SCH (21:41)
[2017-10-30 03:55] VITALS: BP 160/78
[2017-10-30 04:23] LABS: CREATININE 1.3 mg/dL (0.5-1.5); HEMATOCRIT 24.3 % (42-54); MEAN CORPUSCULAR HEMOGLOBIN 24.3 pg (27.0-33.0); MEAN CORPUSCULAR VOLUME 75.9 fL (79-99); NUCLEATED RED BLOOD CELLS 0.2 % (0.0-0.19); PLATELET COUNT (AUTO) 142 K/uL (130-400); POTASSIUM 4.8 mmol/L (3.5-5.1); RED BLOOD CELL COUNT(AUTO) 3.21 MIL/uL (4.50-6.20); RED CELL DISTRIBUTION WIDTH 19.4 % (11.0-15.5); WHITE BLOOD COUNT (AUTO) 11.1 K/uL (4.8-10.8)
[2017-10-30 05:02] LABS: BAND NEUTROPHILS % (MANUAL) 1 % (0-2); LYMPHOCYTES % (MANUAL) 4 % (22-44); MAN.DIFF COMMENT-IMPRESSION MANUAL DIFFERENTIAL; MONOCYTES % (MANUAL) 5 % (2-9); SEGMENTED NEUTROPHILS % 90 % (40-70)
[2017-10-30] MEDS: PREGABALIN 100 MG CAPSULE PO SCH ×3 (05:28→21:47)
[2017-10-30] MEDS: IPRATROPIUM 0.5 MG/2.5 ML INH IH SCH ×4 (06:00→18:00)
[2017-10-30] MEDS: ACETYLCYSTEINE 20% 200MG/ML 4ML VIAL IH SCH ×4 (06:00→18:00)
[2017-10-30] MEDS: INSULIN GLARGINE 100 UNITS/ML 10 ML VIAL SQ SCH (06:23)
[2017-10-30] MEDS: INSULIN HUMULIN R 100 UNIT/ML 3ML SQ SCH ×5 (06:25→21:37)
[2017-10-30 07:00] VITALS: BP 142/68
[2017-10-30] MEDS: VALACYCLOVIR HCL 500 MG TABLET PO SCH (08:52)
[2017-10-30] MEDS: ALLOPURINOL 300 MG TABLET PO SCH (08:52)
[2017-10-30] MEDS: ISOSORBIDE MONO 60 MG TAB.SR PO SCH (08:52)
[2017-10-30] MEDS: METHYLPREDNISOLONE SOD SUCC 40MG/ML 1ML IVP SCH ×2 (08:52→21:46)
[2017-10-30] MEDS: POTASSIUM CHLORIDE 20 MEQ ERTAB PO SCH ×2 (08:53→18:00)
[2017-10-30] MEDS ORDERED: IRON SUCROSE COMPLEX 100 MG in SODIUM CHLORIDE 0.9% 50 ML IV SCH (09:00)
[2017-10-30 11:00] VITALS: BP 132/73
[2017-10-30] MEDS: VANCOMYCIN 1GM+NS 250ML 250 ML IV SCH (11:56)
[2017-10-30 16:00] VITALS: BP 139/65
[2017-10-30 19:53] VITALS: BP 154/71
[2017-10-30] MEDS: ZOLPIDEM TARTRATE PO SCH (21:00)
[2017-10-30] MEDS: CEFTRIAXONE SODIUM 1 GM IVP SCH (21:46)
[2017-10-30] MEDS: TRAZODONE HCL 50 MG TAB PO SCH (21:47)
[2017-10-31] VITALS: BP 154/75
[2017-10-31 02:56] VITALS: BP 169/75
[2017-10-31] MEDS: PREGABALIN 100 MG CAPSULE PO SCH ×3 (05:41→20:27)
[2017-10-31] MEDS: ACETYLCYSTEINE 20% 200MG/ML 4ML VIAL IH SCH ×4 (06:00→18:00)
[2017-10-31] MEDS: IPRATROPIUM 0.5 MG/2.5 ML INH IH SCH ×4 (06:00→18:00)
[2017-10-31] MEDS: INSULIN HUMULIN R 100 UNIT/ML 3ML SQ SCH ×4 (06:11→20:47)
[2017-10-31] MEDS: INSULIN GLARGINE 100 UNITS/ML 10 ML VIAL SQ SCH (06:18)
[2017-10-31] MEDS: PANTOPRAZOLE SODIUM 40 MG TABLET.DR PO SCH (06:23)
[2017-10-31 07:00] VITALS: BP 162/80
[2017-10-31] MEDS: VALACYCLOVIR HCL 500 MG TABLET PO SCH (08:18)
[2017-10-31] MEDS: METHYLPREDNISOLONE SOD SUCC 40MG/ML 1ML IVP SCH ×2 (08:18→20:27)
[2017-10-31] MEDS: ALLOPURINOL 300 MG TABLET PO SCH (08:18)
[2017-10-31] MEDS: POTASSIUM CHLORIDE 20 MEQ ERTAB PO SCH ×2 (08:19→16:42)
[2017-10-31] MEDS: ISOSORBIDE MONO 60 MG TAB.SR PO SCH (08:19)
[2017-10-31 11:00] VITALS: BP 170/76
[2017-10-31] MEDS: GUAIFENESIN-DM 200/20 MG 10 ML PO PRN ×2 (11:00→17:22)
[2017-10-31] MEDS: VANCOMYCIN 1GM+NS 250ML 250 ML IV SCH (12:15)
[2017-10-31] MEDS: METOPROLOL TARTRATE 25 MG TAB PO SCH (12:44)
[2017-10-31 16:00] VITALS: BP 141/75
[2017-10-31 19:32] VITALS: BP 134/70
[2017-10-31] MEDS: ZOLPIDEM TARTRATE PO SCH (20:20)
[2017-10-31] MEDS: CEFTRIAXONE SODIUM 1 GM IVP SCH (20:26)
[2017-10-31] MEDS: LISINOPRIL 5 MG TABLET PO SCH (20:27)
[2017-10-31] MEDS: TRAZODONE HCL 50 MG TAB PO SCH (20:27)
[2017-11-01] VITALS (7 sets, daily range): BP systolic 127–146; BP diastolic 63–77
[2017-11-01] MEDS: METOPROLOL TARTRATE 25 MG TAB PO SCH ×3 (00:32→21:02)
[2017-11-01 04:26] LABS: BASOPHILS % (AUTO) 0.1 % (0.0-5.0); EOSINOPHILS % (AUTO) 0.1 % (0.0-8.0); HEMATOCRIT 26.7 % (42-54); MEAN CORPUSCULAR HEMOGLOBIN 26.3 pg (27.0-33.0); MEAN CORPUSCULAR HGB CONC 33.9 g/dL (32.0-36.0); MEAN CORPUSCULAR VOLUME 77.5 fL (79-99); MONOCYTES % (AUTO) 8.6 % (3.0-13.0); NEUTROPHILS % (AUTO) 88.2 % (40.0-77.0); NUCLEATED RED BLOOD CELLS 0.3 % (0.0-0.19); PLATELET COUNT (AUTO) 124 K/uL (130-400); RED BLOOD CELL COUNT(AUTO) 3.45 MIL/uL (4.50-6.20); RED CELL DISTRIBUTION WIDTH 19.5 % (11.0-15.5); WHITE BLOOD COUNT (AUTO) 15.3 K/uL (4.8-10.8)
[2017-11-01 04:38] LABS: CREATININE 1.1 mg/dL (0.5-1.5); POTASSIUM 4.9 mmol/L (3.5-5.1)
[2017-11-01] MEDS: PREGABALIN 100 MG CAPSULE PO SCH ×3 (05:20→21:02)
[2017-11-01] MEDS: INSULIN HUMULIN R 100 UNIT/ML 3ML SQ SCH ×4 (05:54→21:09)
[2017-11-01] MEDS: ACETYLCYSTEINE 20% 200MG/ML 4ML VIAL IH SCH ×4 (06:00→18:00)
[2017-11-01] MEDS: INSULIN GLARGINE 100 UNITS/ML 10 ML VIAL SQ SCH (06:03)
[2017-11-01] MEDS: PANTOPRAZOLE SODIUM 40 MG TABLET.DR PO SCH (06:07)
[2017-11-01] MEDS: ALLOPURINOL 300 MG TABLET PO SCH (09:00)
[2017-11-01] MEDS: VALACYCLOVIR HCL 500 MG TABLET PO SCH (09:00)
[2017-11-01] MEDS: ISOSORBIDE MONO 60 MG TAB.SR PO SCH (09:00)
[2017-11-01] MEDS: LISINOPRIL 5 MG TABLET PO SCH ×2 (09:00→21:02)
[2017-11-01] MEDS: METHYLPREDNISOLONE SOD SUCC 40MG/ML 1ML IVP SCH ×2 (09:01→21:01)
[2017-11-01] MEDS: POTASSIUM CHLORIDE 20 MEQ ERTAB PO SCH ×2 (09:01→17:43)
[2017-11-01] MEDS: VANCOMYCIN 1GM+NS 250ML 250 ML IV SCH (11:57)
[2017-11-01] MEDS: IPRATROPIUM 0.5 MG/2.5 ML INH IH SCH ×4 (14:15→23:21)
[2017-11-01] MEDS: ZOLPIDEM TARTRATE PO SCH (21:00)
[2017-11-01] MEDS: CEFTRIAXONE SODIUM 1 GM IVP SCH (21:01)
[2017-11-01] MEDS: TRAZODONE HCL 50 MG TAB PO SCH (21:02)
[2017-11-02] MEDS: GUAIFENESIN-DM 200/20 MG 10 ML PO PRN ×3 (02:03→15:57)
[2017-11-02 03:35] VITALS: BP 130/82
[2017-11-02] MEDS: PREGABALIN 100 MG CAPSULE PO SCH ×3 (05:23→20:35)
[2017-11-02] MEDS: IPRATROPIUM 0.5 MG/2.5 ML INH IH SCH ×4 (05:39→23:29)
[2017-11-02] MEDS: INSULIN HUMULIN R 100 UNIT/ML 3ML SQ SCH ×4 (06:21→21:26)
[2017-11-02] MEDS: PANTOPRAZOLE SODIUM 40 MG TABLET.DR PO SCH (06:45)
[2017-11-02] MEDS: INSULIN GLARGINE 100 UNITS/ML 10 ML VIAL SQ SCH (06:49)
[2017-11-02 07:59] VITALS: BP 137/82
[2017-11-02] MEDS: METOPROLOL TARTRATE 25 MG TAB PO SCH ×2 (09:27→20:35)
[2017-11-02] MEDS: ALLOPURINOL 300 MG TABLET PO SCH (09:28)
[2017-11-02] MEDS: ISOSORBIDE MONO 60 MG TAB.SR PO SCH (09:29)
[2017-11-02] MEDS: VALACYCLOVIR HCL 500 MG TABLET PO SCH (09:30)
[2017-11-02] MEDS: LISINOPRIL 5 MG TABLET PO SCH ×2 (09:30→20:36)
[2017-11-02] MEDS: POTASSIUM CHLORIDE 20 MEQ ERTAB PO SCH ×2 (09:30→16:30)
[2017-11-02] MEDS: METHYLPREDNISOLONE SOD SUCC 40MG/ML 1ML IVP SCH ×2 (09:31→20:35)
[2017-11-02] MEDS ORDERED: METOLAZONE 2.5 MG TABLET PO SCH (11:15)
[2017-11-02 11:39] VITALS: BP 164/68
[2017-11-02 16:02] VITALS: BP 130/65
[2017-11-02] MEDS: ACETYLCYSTEINE 20% 200MG/ML 4ML VIAL IH SCH ×2 (18:00)
[2017-11-02 20:14] VITALS: BP 139/59
[2017-11-02] MEDS: CEFTRIAXONE SODIUM 1 GM IVP SCH (20:34)
[2017-11-02] MEDS: TRAZODONE HCL 50 MG TAB PO SCH (20:35)
[2017-11-02] MEDS: ZOLPIDEM TARTRATE PO SCH (20:36)
[2017-11-03] VITALS: BP 145/74
[2017-11-03 03:59] VITALS: BP 139/65
[2017-11-03 04:14] LABS: MEAN CORPUSCULAR HEMOGLOBIN 26.1 pg (27.0-33.0); MEAN CORPUSCULAR HGB CONC 33.3 g/dL (32.0-36.0); MEAN CORPUSCULAR VOLUME 78.6 fL (79-99); NUCLEATED RED BLOOD CELLS 0.3 % (0.0-0.19); PLATELET COUNT (AUTO) 137 K/uL (130-400); RED BLOOD CELL COUNT(AUTO) 3.95 MIL/uL (4.50-6.20); RED CELL DISTRIBUTION WIDTH 20.6 % (11.0-15.5); WHITE BLOOD COUNT (AUTO) 13.9 K/uL (4.8-10.8)
[2017-11-03] MEDS: PREGABALIN 100 MG CAPSULE PO SCH ×3 (04:41→21:21)
[2017-11-03] MEDS: ACETYLCYSTEINE 20% 200MG/ML 4ML VIAL IH SCH ×2 (06:00)
[2017-11-03] MEDS: PANTOPRAZOLE SODIUM 40 MG TABLET.DR PO SCH (06:09)
[2017-11-03] MEDS: INSULIN HUMULIN R 100 UNIT/ML 3ML SQ SCH ×4 (06:11→21:46)
[2017-11-03] MEDS: INSULIN GLARGINE 100 UNITS/ML 10 ML VIAL SQ SCH (06:11)
[2017-11-03] MEDS: IPRATROPIUM 0.5 MG/2.5 ML INH IH SCH ×3 (06:26→18:45)
[2017-11-03 07:00] VITALS: BP 153/86
[2017-11-03 08:09] LABS: LYMPHOCYTES % (MANUAL) 3 % (22-44); MAN.DIFF COMMENT-IMPRESSION MANUAL DIFFERENTIAL; MONOCYTES % (MANUAL) 5 % (2-9); SEGMENTED NEUTROPHILS % 92 % (40-70)
[2017-11-03 08:11] LABS: PLATELET MORPHOLOGY COMMENT ADEQUATE
[2017-11-03] MEDS: METHYLPREDNISOLONE SOD SUCC 40MG/ML 1ML IVP SCH ×2 (09:34→21:21)
[2017-11-03] MEDS: ISOSORBIDE MONO 60 MG TAB.SR PO SCH (09:35)
[2017-11-03] MEDS: ALLOPURINOL 300 MG TABLET PO SCH (09:35)
[2017-11-03] MEDS: LISINOPRIL 5 MG TABLET PO SCH ×2 (09:35→21:20)
[2017-11-03] MEDS: VALACYCLOVIR HCL 500 MG TABLET PO SCH (09:35)
[2017-11-03] MEDS: METOPROLOL TARTRATE 25 MG TAB PO SCH ×2 (09:35→21:21)
[2017-11-03] MEDS: POTASSIUM CHLORIDE 20 MEQ ERTAB PO SCH ×2 (09:36→17:15)
[2017-11-03 11:00] VITALS: BP 142/77
[2017-11-03 16:00] VITALS: BP 135/74
[2017-11-03 19:44] VITALS: BP 121/66
[2017-11-03] MEDS: TRAZODONE HCL 50 MG TAB PO SCH (21:21)
[2017-11-03] MEDS: CEFTRIAXONE SODIUM 1 GM IVP SCH (21:21)
== END 2017-11-03 21:59 | DRG 224 ==
LOC: EDH 18:23 → EDHIP 20:50 → 2BH 10-22 07:50 → 2AH 10-26 23:13
PROVIDERS: ADMIT Internal Medicine; ATTEND Internal Medicine
PROC: B2111ZZ Fluoroscopy of Multiple Coronary Arteries using Low Osmolar Contrast (ICD-10-PCS; principal; 2017-10-23)
PROC: 4A023N7 Measurement of Cardiac Sampling and Pressure, Left Heart, Percutaneous Approach (ICD-10-PCS; 2017-10-23)
PROC: B2131ZZ Fluoroscopy of Multiple Coronary Artery Bypass Grafts using Low Osmolar Contrast (ICD-10-PCS; 2017-10-23)
PROC: 0JH608Z Insertion of Defibrillator Generator into Chest Subcutaneous Tissue and Fascia, Open Approach (ICD-10-PCS; 2017-10-29)
PROC: 02HK3KZ Insertion of Defibrillator Lead into Right Ventricle, Percutaneous Approach (ICD-10-PCS; 2017-10-29)
PROC: 02HL3KZ Insertion of Defibrillator Lead into Left Ventricle, Percutaneous Approach (ICD-10-PCS; 2017-10-29)
PROC: 30233N1 Transfusion of Nonautologous Red Blood Cells into Peripheral Vein, Percutaneous Approach (ICD-10-PCS; 2017-10-31)
DX: T82.855A Stenosis of coronary artery stent, initial encounter (principal); I46.9 Cardiac arrest, cause unspecified; J09.X1 Influenza due to identified novel influenza A virus with pneumonia; J96.90 Respiratory failure, unspecified, unspecified whether with hypoxia or hypercapnia; I47.2 Ventricular tachycardia; I44.2 Atrioventricular block, complete; N18.3 Chronic kidney disease, stage 3 (moderate); K66.1 Hemoperitoneum; I13.0 Hypertensive heart and chronic kidney disease with heart failure and stage 1 through stage 4 chronic kidney disease, or unspecified chronic kidney disease; I25.810 Atherosclerosis of coronary artery bypass graft(s) without angina pectoris; I24.0 Acute coronary thrombosis not resulting in myocardial infarction; J44.1 Chronic obstructive pulmonary disease with (acute) exacerbation; J44.0 Chronic obstructive pulmonary disease with (acute) lower respiratory infection; I50.22 Chronic systolic (congestive) heart failure; D69.6 Thrombocytopenia, unspecified; E11.21 Type 2 diabetes mellitus with diabetic nephropathy; E11.40 Type 2 diabetes mellitus with diabetic neuropathy, unspecified; E11.65 Type 2 diabetes mellitus with hyperglycemia; D50.0 Iron deficiency anemia secondary to blood loss (chronic); E11.22 Type 2 diabetes mellitus with diabetic chronic kidney disease; E78.5 Hyperlipidemia, unspecified; F03.90 Unspecified dementia, unspecified severity, without behavioral disturbance, psychotic disturbance, mood disturbance, and anxiety; I25.5 Ischemic cardiomyopathy; I45.10 Unspecified right bundle-branch block; I48.0 Paroxysmal atrial fibrillation; I48.2 Chronic atrial fibrillation; M10.9 Gout, unspecified; Y83.2 Surgical operation with anastomosis, bypass or graft as the cause of abnormal reaction of the patient, or of later complication, without mention of misadventure at the time of the procedure; J20.9 Acute bronchitis, unspecified; R56.9 Unspecified convulsions; Z79.01 Long term (current) use of anticoagulants; Z79.82 Long term (current) use of aspirin; Z86.010 Personal history of colon polyps; I25.2 Old myocardial infarction; Z95.5 Presence of coronary angioplasty implant and graft; Z95.810 Presence of automatic (implantable) cardiac defibrillator; Y92.89 Other specified places as the place of occurrence of the external cause
CPT/HCPCS: 33225; 33249; 36415; 36430; 36600; 71045; 74176; 80048; 80053; 82270; 82330; 82435; 82550; 82553; 82803; 82947; 82948; 83605; 83735; 83874; 83880; 84132; 84295; 84484; 85018; 85025; 85027; 85610; 85730; 86850; 86900; 86901; 86922; 87071; 87205; 87804; 93005; 93306; 93455; 94640; 94664; 97039; 99152; 99153; 99291; A4218; C1760; C1769; C1894; J0282; J0696; J1644; J1650; J1756; J1815; J2175; J2250; J2920; J2930; J3370; J3490; J7040; J7060; J7608; P9016; Q9967